=== PATIENT | male | born 1975 | race Caucasian/White ===

== ENCOUNTER 2021-11-18 09:28 | Emergency (ER) | payer OTHER ==
[2021-11-18 09:40] VITALS: BP 99/57; PULSE 50; RESP 18; TEMP 97.5; BMI 24.3
[2021-11-18] MEDS ORDERED: DIPHTH,PERTUSS(ACELL),TET 0.5 ML DISP.SYRIN IM ONE ×2 (09:52→10:38)
== END 2021-11-18 10:58 | disposition home or self-care (01) ==
LOC: JER 09:28 → JERFT 09:28
PROC: 3E0234Z Introduction of Serum, Toxoid and Vaccine into Muscle, Percutaneous Approach (ICD-10-PCS; principal; 2021-11-18)
DX: S61.213A Laceration without foreign body of left middle finger without damage to nail, initial encounter (principal); W26.0XXA Contact with knife, initial encounter
CPT/HCPCS: 90715; 99284-25